=== PATIENT | female | born 1995 | race Hispanic/Latino ===

== ENCOUNTER 2021-04-21 21:01 | Emergency (ER) | payer BC | END 2021-04-21 23:45 | disposition home or self-care (01) | LOC: EDH 21:01 | DX: S09.90XA Unspecified injury of head, initial encounter (principal); F41.9 Anxiety disorder, unspecified; W22.8XXA Striking against or struck by other objects, initial encounter; Y93.89 Activity, other specified; Y92.89 Other specified places as the place of occurrence of the external cause; Y99.8 Other external cause status | CPT/HCPCS: 70450 ==

== ENCOUNTER → 2021-07-12 | Outpatient (CLI) | payer BC ==
[~2021-07-12] MED LIST: FLUD0.1T2 PO; IOHEXOL-350 50ML VIAL IV ONE; PROP20TA7 PO
== END | disposition home or self-care (01) ==
LOC: RAH 08:18
PROVIDERS: ATTEND Internal Medicine Cardiovascular Disease
DX: R94.39 Abnormal result of other cardiovascular function study (principal); R55 Syncope and collapse
CPT/HCPCS: 75574; Q9967

== ENCOUNTER 2021-07-15 06:00 | Day surgery (SDC) | payer BC ==
[2021-07-14 12:59] LABS: BASOPHILS % (AUTO) 0.5 % (0.0-5.0); EOSINOPHILS % (AUTO) 0.8 % (0.0-8.0); HEMATOCRIT 41.4 % (36-48); LYMPHOCYTES % (AUTO) 34.8 % (21.0-51.0); MEAN CORPUSCULAR HEMOGLOBIN 25.6 pg (27.0-33.0); MEAN CORPUSCULAR HGB CONC 32.4 g/dL (32.0-36.0); MONOCYTES % (AUTO) 9.3 % (3.0-13.0); NEUTROPHILS % (AUTO) 54.3 % (40.0-77.0); PLATELET COUNT (AUTO) 284 K/uL (130-400); RED BLOOD CELL COUNT(AUTO) 5.24 MIL/uL (4.00-5.50); RED CELL DISTRIBUTION WIDTH 13.8 % (11.0-15.5); WHITE BLOOD COUNT (AUTO) 6.2 K/uL (4.8-10.8)
[2021-07-14 13:11] LABS: CREATININE 0.7 mg/dL (0.5-1.5); POTASSIUM 3.1 mmol/L (3.5-5.1)
[2021-07-14 13:12] LABS: INR 0.96 (0.85-1.15); PROTHROMBIN TIME 10.5 SEC (9.6-11.6)
[2021-07-14 13:14] VITALS: BP 121/71
[2021-07-14 13:14] LABS: PARTIAL THROMBOPLASTIN TIME 25.9 SEC (26.3-35.5)
[2021-07-15] VITALS (9 sets, daily range): BP systolic 100–135; BP diastolic 55–72
[~2021-07-15] VITALS: Ht 152.4 cm; Wt 78.4 kg
[~2021-07-15 06:00] MED LIST changes: +0.9% NACL 500ML IV.SOLN 500 ML IV SCH; -IOHEXOL-350 50ML VIAL IV ONE
[2021-07-15] MEDS ORDERED: 0.9%NACL 1000ML 1,000 ML IV ONE (06:15)
[2021-07-15 06:23] LABS: CREATININE 0.7 mg/dL (0.5-1.5); POTASSIUM 3.5 mmol/L (3.5-5.1)
[2021-07-15] MEDS ORDERED: MIDAZOLAM HCL 1 MG/ML 2ML VIAL ONE (07:22)
[2021-07-15] MEDS ORDERED: MEPERIDINE-PF 25 MG/ML SYG ONE (07:22)
[2021-07-15] MEDS ORDERED: HEPARIN 10,000 UNIT/10ML (1,000 UNIT/ML) VIAL ONE (07:22)
[2021-07-15] MEDS ORDERED: LIDOCAINE HCL 400MG/20ML VIAL ONE (07:23)
[2021-07-15] MEDS ORDERED: ISOPROTERENOL HCL 0.2 MG/ML AMP/VIAL/BAG ONE (09:18)
[2021-07-15] MEDS ORDERED: PROP80CA59 PO (10:53)
== END 2021-07-15 13:40 | disposition home or self-care (01) ==
LOC: DAH 06:00
PROVIDERS: ATTEND Internal Medicine Cardiovascular Disease
DX: I47.1 Supraventricular tachycardia (principal); I49.8 Other specified cardiac arrhythmias; Z79.01 Long term (current) use of anticoagulants; Z79.899 Other long term (current) drug therapy
CPT/HCPCS: 36415 ×2; 80048 ×2; 84703; 85025; 85610; 85730; 93620; 93621; 93623; A4215; A4216; A4221; A4222; A4223 ×3; A4606; A4649 ×2; A4663; C1730 ×4; C1894 ×5; J1644 ×2; J2175; J2250; J3490 ×2; J7030; 99156; 99157

== ENCOUNTER 2021-11-01 17:49 | Observation (INO) | payer BC ==
[~2021-11-01] VITALS: Ht 152.4 cm; Wt 78.0 kg
[~2021-11-01 17:49] MED LIST changes: -0.9%NACL 1000ML 1,000 ML IV SCH; -POTA-79 PO
[2021-11-01 18:22] LABS: BASOPHILS % (AUTO) 0.5 % (0.0-5.0); EOSINOPHILS % (AUTO) 0.4 % (0.0-8.0); HEMATOCRIT 37.5 % (36-48); LYMPHOCYTES % (AUTO) 18.2 % (21.0-51.0); MEAN CORPUSCULAR HEMOGLOBIN 25.1 pg (27.0-33.0); MEAN CORPUSCULAR HGB CONC 32.3 g/dL (32.0-36.0); MEAN CORPUSCULAR VOLUME 77.8 fL (79-99); MONOCYTES % (AUTO) 9.8 % (3.0-13.0); NEUTROPHILS % (AUTO) 70.9 % (40.0-77.0); PLATELET COUNT (AUTO) 260 K/uL (130-400); RED BLOOD CELL COUNT(AUTO) 4.82 MIL/uL (4.00-5.50); WHITE BLOOD COUNT (AUTO) 8.4 K/uL (4.8-10.8)
[2021-11-01 18:41] LABS: ALBUMIN 3.9 g/dL (3.5-5.0); BILIRUBIN,TOTAL 0.5 mg/dL (0.2-1.0); CREATININE 0.8 mg/dL (0.5-1.5); CRP QUANTITATIVE 13.5 mg/L (0.00-9.0); TOTAL PROTEIN, SERUM 7.6 g/dL (6.0-8.3)
[2021-11-01 18:44] LABS: POTASSIUM 2.8 mmol/L (3.5-5.1)
[2021-11-01] MEDS ORDERED: LIDOCAINE HCL-MPF 1% 2ML VIAL IJ PRN (19:30)
[2021-11-01] MEDS ORDERED: NITROGLYCERIN 0.4 MG SL TAB SL PRN (19:30)
[2021-11-01] MEDS ORDERED: ACETAMINOPHEN 325 MG TAB PO PRN ×2 (19:30)
[2021-11-01] MEDS ORDERED: ONDANSETRON 4MG INJ IV PRN (19:30)
[2021-11-01] MEDS ORDERED: MAGNESIUM 2GM PREMIX 50ML 50 ML IV PRN (19:30)
[2021-11-01] MEDS ORDERED: POTASSIUM CHLORIDE 20MEQ/100ML 100 ML IV PRN (19:30)
[2021-11-01 19:40] LABS: PROTHROMBIN TIME 10.9 SEC (9.6-11.6)
[2021-11-01 19:41] LABS: PARTIAL THROMBOPLASTIN TIME 27.3 SEC (26.3-35.5)
[2021-11-01] MEDS ORDERED: POTASSIUM BICARB/CIT AC 25 MEQ TABLET.EFF PO ONE (20:00)
[2021-11-01] MEDS: FAMOTIDINE 20MG VIAL IV SCH (20:47)
[2021-11-01] MEDS: 0.9%NACL 1000ML 1,000 ML IV SCH (20:47)
[2021-11-02] VITALS (7 sets, daily range): BP systolic 107–134; BP diastolic 63–86
[2021-11-02] MEDS ORDERED: MIDAZOLAM HCL 1 MG/ML 2ML VIAL ONE ×3 (07:34→09:51)
[2021-11-02] MEDS ORDERED: LIDOCAINE HCL 400MG/20ML VIAL ONE ×2 (07:34→08:39)
[2021-11-02] MEDS ORDERED: MEPERIDINE-PF 25 MG/ML SYG ONE ×3 (07:34→09:51)
[2021-11-02 07:44] LABS: ALBUMIN 3.6 g/dL (3.5-5.0); BILIRUBIN,TOTAL 0.5 mg/dL (0.2-1.0); CREATININE 0.6 mg/dL (0.5-1.5); MAGNESIUM 2.1 mg/dL (1.80-2.40); POTASSIUM 3.2 mmol/L (3.5-5.1); TOTAL PROTEIN, SERUM 7.2 g/dL (6.0-8.3)
[2021-11-02 07:56] LABS: BASOPHILS % (AUTO) 0.3 % (0.0-5.0); EOSINOPHILS % (AUTO) 0.5 % (0.0-8.0); HEMATOCRIT 35.5 % (36-48); LYMPHOCYTES % (AUTO) 22.5 % (21.0-51.0); MEAN CORPUSCULAR HEMOGLOBIN 25.3 pg (27.0-33.0); MEAN CORPUSCULAR HGB CONC 32.1 g/dL (32.0-36.0); MEAN CORPUSCULAR VOLUME 78.9 fL (79-99); MONOCYTES % (AUTO) 12.4 % (3.0-13.0); PLATELET COUNT (AUTO) 254 K/uL (130-400); RED CELL DISTRIBUTION WIDTH 14.5 % (11.0-15.5); WHITE BLOOD COUNT (AUTO) 6.5 K/uL (4.8-10.8)
[2021-11-02] MEDS ORDERED: HEPARIN 10,000 UNIT/10ML (1,000 UNIT/ML) VIAL ONE (08:09)
[2021-11-02] MEDS ORDERED: ISOPROTERENOL HCL 0.2 MG/ML AMP/VIAL/BAG ONE (09:09)
[2021-11-02] MEDS ORDERED: PHARMACY COMMUNICATION MISC SCH (10:00)
[2021-11-02] MEDS ORDERED: EPINEPHRINE PF 1MG AMP 10 MG in 0.9% NACL 250ML 250 ML IV SCH (10:00)
[2021-11-02] MEDS ORDERED: IOHEXOL-350 50ML VIAL IV ONE (10:06)
[2021-11-02] MEDS ORDERED: KCL 20 MEQ ERTAB PO SCH (11:00)
[2021-11-02] MEDS: 0.9%NACL 1000ML 1,000 ML IV SCH (11:39)
[2021-11-02] MEDS: FAMOTIDINE 20MG VIAL IV SCH (11:45)
[2021-11-02] MEDS ORDERED: POTASSIUM CHLORIDE 10% ELIXIR 20 MEQ/15 ML UDCUP PO SCH (12:00)
[2021-11-02] MEDS ORDERED: POTA-79 PO (16:15)
== END 2021-11-02 17:55 | disposition home or self-care (01) ==
LOC: EDH 17:49 → EDHIP 19:28 → INTOOBSV 19:28 → OBSVTOIN 19:28 → 4DH 11-02 11:40
PROVIDERS: ADMIT Internal Medicine; ATTEND Internal Medicine
DX: R55 Syncope and collapse (principal); Z20.822 Contact with and (suspected) exposure to COVID-19; I47.1 Supraventricular tachycardia; I49.8 Other specified cardiac arrhythmias; I48.91 Unspecified atrial fibrillation; E87.6 Hypokalemia; I10 Essential (primary) hypertension; E66.9 Obesity, unspecified; F41.9 Anxiety disorder, unspecified; Z68.33 Body mass index [BMI] 33.0-33.9, adult; Z79.899 Other long term (current) drug therapy
CPT/HCPCS: 36415 ×3; 71045; 80048; 80053 ×2; 83735 ×2; 84132 ×2; 84484; 84703 ×2; 85025 ×3; 85610 ×2; 85730 ×2; 86140; 87635; 93005 ×3; 93613; 93621; 93623; 93653; 96374; 96376; 99283; A4649 ×2; C1730 ×3; C1731; C1894 ×5; G0378 ×19; J0171; J1644 ×3; J2175 ×2; J2250 ×2; J3490 ×5; J7030; J7050; Q9967; 99156; 99157

== ENCOUNTER → 2021-11-01 | Outpatient (CLI) | payer BC ==
[~2021-11-01] VITALS: Ht 152.4 cm; Wt 78.2 kg
[~2021-11-01] MED LIST changes: -0.9% NACL 500ML IV.SOLN 500 ML IV SCH; +0.9%NACL 1000ML 1,000 ML IV SCH; +CITA10TA89 PO; +MIDO5TAB4 PO; +POTA-79 PO; +POTASSIUM PO; -PROP20TA7 PO; +PROP80CA59 PO; +VERA120T92 PO
[2021-11-01 14:12] LABS: BASOPHILS % (AUTO) 0.2 % (0.0-5.0); EOSINOPHILS % (AUTO) 0.5 % (0.0-8.0); HEMATOCRIT 40.1 % (36-48); LYMPHOCYTES % (AUTO) 17.2 % (21.0-51.0); MEAN CORPUSCULAR HGB CONC 32.2 g/dL (32.0-36.0); MEAN CORPUSCULAR VOLUME 77.9 fL (79-99); MONOCYTES % (AUTO) 6.8 % (3.0-13.0); NEUTROPHILS % (AUTO) 75.1 % (40.0-77.0); PLATELET COUNT (AUTO) 273 K/uL (130-400); RED BLOOD CELL COUNT(AUTO) 5.15 MIL/uL (4.00-5.50); RED CELL DISTRIBUTION WIDTH 14.1 % (11.0-15.5); WHITE BLOOD COUNT (AUTO) 8.3 K/uL (4.8-10.8)
[2021-11-01 14:26] LABS: INR 0.98 (0.85-1.15); PROTHROMBIN TIME 10.7 SEC (9.6-11.6)
[2021-11-01 14:28] VITALS: BP 139/62
[2021-11-01 14:28] LABS: PARTIAL THROMBOPLASTIN TIME 27.5 SEC (26.3-35.5)
[2021-11-01 14:29] LABS: CREATININE 0.6 mg/dL (0.5-1.5)
[2021-11-01 14:38] LABS: POTASSIUM 2.7 mmol/L (3.5-5.1)
== END | disposition home or self-care (01) ==
LOC: DAH 10:00 → EDSTATUS 12:00
PROVIDERS: ATTEND Internal Medicine Cardiovascular Disease
DX: Z01.810 Encounter for preprocedural cardiovascular examination (principal); R55 Syncope and collapse; I49.8 Other specified cardiac arrhythmias; Z79.01 Long term (current) use of anticoagulants
CPT/HCPCS: 36415; 80048; 84703; 85025; 85610; 85730; 93005

== ENCOUNTER 2022-03-03 23:52 | Emergency (ER) | payer BC, OTHER ==
[~2022-03-03] VITALS: Ht 152.4 cm; Wt 80.7 kg
[~2022-03-03 23:52] MED LIST changes: +POTA-79 PO; -POTASSIUM PO; -PROP80CA59 PO
[2022-03-04 01:11] LABS: BASOPHILS % (AUTO) 0.2 % (0.0-5.0); EOSINOPHILS % (AUTO) 0.7 % (0.0-8.0); HEMATOCRIT 43.6 % (36-48); LYMPHOCYTES % (AUTO) 24.7 % (21.0-51.0); MEAN CORPUSCULAR HGB CONC 32.3 g/dL (32.0-36.0); MEAN CORPUSCULAR VOLUME 77.2 fL (79-99); MONOCYTES % (AUTO) 4.6 % (3.0-13.0); NEUTROPHILS % (AUTO) 69.4 % (40.0-77.0); PLATELET COUNT (AUTO) 350 K/uL (130-400); RED BLOOD CELL COUNT(AUTO) 5.65 MIL/uL (4.00-5.50); WHITE BLOOD COUNT (AUTO) 8.5 K/uL (4.8-10.8)
[2022-03-04 01:13] LABS: BILIRUBIN,URINE Negative (NEGATIVE); COLOR,URINE Yellow (YELLOW); GLUCOSE, URINE (UA) Negative (NEGATIVE); KETONES,URINE Negative (NEGATIVE); LEUKOCYTE ESTERASE ,URINE Moderate (NEGATIVE); NITRATE,URINE Negative (NEGATIVE); OCCULT BLOOD,URINE Moderate (NEGATIVE); PROTEIN,URINE Negative (NEGATIVE); UROBILINOGEN,URINE 0.2 mg/dL (0.2-1.0)
[2022-03-04 01:15] LABS: HCG,QUAL RESULT NEGATIVE (NEGATIVE)
[2022-03-04 01:16] LABS: APPEARANCE,URINE CLEAR (CLEAR)
[2022-03-04 01:23] LABS: BACTERIA,URINE Few /HPF (None Seen)
[2022-03-04 01:30] LABS: CARBON DIOXIDE 27 mmol/L (21-32); CHLORIDE 103 mmol/L (101-111); CREATININE 0.6 mg/dL (0.5-1.5); GLOMERULAR FILTR. RATE CALC 131 mL/min (>60); GLUCOSE,RANDOM 96 mg/dL (70-105); POTASSIUM 3.6 mmol/L (3.5-5.1); SODIUM SERUM 137 mmol/L (136-145); UREA NITROGEN, BLOOD 9 mg/dL (7-18)
[2022-03-04 01:34] LABS: ALANINE AMINOTRANSFERASE 19 U/L (12-78); ALBUMIN 4.1 g/dL (3.5-5.0); ALCOHOL, BLOOD < 3 mg/dL (0-10); ASPARTATE AMINOTRANSFERASE 15 U/L (10-37); BILIRUBIN,TOTAL 0.6 mg/dL (0.2-1.0); TOTAL PROTEIN, SERUM 8.2 g/dL (6.0-8.3)
[2022-03-04 01:40] LABS: ACETAMINOPHEN < 1 mcg/mL (10-30); SALICYLATE < 2.8 mg/dL (2.8-20.0)
[2022-03-04 01:48] LABS: AMPHET/METH SCREEN,URINE NEGATIVE (NEGATIVE); BARBITURATE SCREEN, URINE NEGATIVE (NEGATIVE); BENZODIAZEPINES SCREEN,URINE NEGATIVE (NEGATIVE); CANNABINOID SCREEN,URINE NEGATIVE (NEGATIVE); COCAINE SCREEN,URINE NEGATIVE (NEGATIVE); OPIATE SCREEN,URINE NEGATIVE (NEGATIVE); PHENCYCLIDINE SCREEN,URINE NEGATIVE (NEGATIVE)
[2022-03-04 08:00] VITALS: BP 131/98
== END 2022-03-04 12:11 ==
LOC: EDH 23:52
DX: T42.6X2A Poisoning by other antiepileptic and sedative-hypnotic drugs, intentional self-harm, initial encounter (principal); S50.812A Abrasion of left forearm, initial encounter; R45.851 Suicidal ideations; F31.9 Bipolar disorder, unspecified; Z20.822 Contact with and (suspected) exposure to COVID-19; Z79.899 Other long term (current) drug therapy; X78.8XXA Intentional self-harm by other sharp object, initial encounter; Y93.89 Activity, other specified; Y92.89 Other specified places as the place of occurrence of the external cause; Y99.8 Other external cause status
CPT/HCPCS: 36415; 80053; 80305; 81001; 81025; 85025; 87088; 87635; 99285; C9803; G0481

== ENCOUNTER → 2022-12-16 | Outpatient (CLI) | payer BC ==
[2022-12-16 12:33] LABS: CREATININE 0.8 mg/dL (0.5-1.5); MAGNESIUM 1.8 mg/dL (1.80-2.40); POTASSIUM 3.9 mmol/L (3.5-5.1)
== END | disposition home or self-care (01) ==
LOC: LAB 10:29
PROVIDERS: ATTEND Internal Medicine Cardiovascular Disease
DX: G90.9 Disorder of the autonomic nervous system, unspecified (principal)
CPT/HCPCS: 36415; 80048; 83735

== ENCOUNTER → 2023-01-18 | Outpatient (CLI) | payer BC ==
[2023-01-18 13:02] LABS: CREATININE 0.7 mg/dL (0.5-1.5); POTASSIUM 3.8 mmol/L (3.5-5.1)
== END | disposition home or self-care (01) ==
LOC: LAB 08:41
PROVIDERS: ATTEND Internal Medicine Cardiovascular Disease
DX: G90.9 Disorder of the autonomic nervous system, unspecified (principal)
CPT/HCPCS: 36415; 80048; 83735

== ENCOUNTER → 2023-12-20 | Outpatient (CLI) | payer SELFPAY ==
[~2023-12-20] MED LIST changes: +POTA-364 PO; -POTA-79 PO
[2023-12-20 16:18] LABS: CREATININE 0.6 mg/dL (0.5-1.5); MAGNESIUM 2.1 mg/dL (1.80-2.40); POTASSIUM 3.9 mmol/L (3.5-5.1)
== END | disposition home or self-care (01) ==
LOC: LAB 14:47
PROVIDERS: ATTEND Internal Medicine Cardiovascular Disease
DX: G90.9 Disorder of the autonomic nervous system, unspecified (principal)
CPT/HCPCS: 36415; 80048; 83735

== ENCOUNTER → 2024-08-28 | Outpatient (CLI) | payer SELFPAY ==
[2024-08-28 16:32] LABS: BASOPHILS # (AUTO) 0.03 K/uL (0.00-0.20); BASOPHILS % (AUTO) 0.4 % (0.0-5.0); EOSINOPHILS # (AUTO) 0.09 K/uL (0.00-0.70); EOSINOPHILS % (AUTO) 1.2 % (0.0-8.0); HEMATOCRIT 41.6 % (36-48); IMMATURE GRANULOCYTE ABSOLUTE 0.03 K/uL (0-1); LYMPHOCYTES # (AUTO) 2.4 K/uL (1.0-4.8); LYMPHOCYTES % (AUTO) 30.6 % (21.0-51.0); MEAN CORPUSCULAR HEMOGLOBIN 25.3 pg (27.0-33.0); MEAN CORPUSCULAR HGB CONC 30.5 g/dL (32.0-36.0); MEAN CORPUSCULAR VOLUME 82.9 fL (79-99); MONOCYTES # (AUTO) 0.5 K/uL (0.1-1.0); NEUTROPHILS # (AUTO) 4.6 K/uL (1.8-7.7); NEUTROPHILS % (AUTO) 60.4 % (40.0-77.0); PLATELET COUNT (AUTO) 291 K/uL (130-400); RED BLOOD CELL COUNT(AUTO) 5.02 MIL/uL (4.00-5.50); RED CELL DISTRIBUTION WIDTH 14.5 % (11.0-15.5); WHITE BLOOD COUNT (AUTO) 7.7 K/uL (4.8-10.8)
[2024-08-28 17:01] LABS: ALBUMIN 3.9 g/dL (3.5-5.0); BILIRUBIN,TOTAL 0.2 mg/dL (0.2-1.0); CREATININE 0.7 mg/dL (0.5-1.0); MAGNESIUM 2.2 mg/dL (1.80-2.40); POTASSIUM 4.3 mmol/L (3.5-5.1); THYROID STIMULATING HORMONE 1.68 uIU/mL (0.36-3.74); TOTAL PROTEIN, SERUM 7.6 g/dL (6.0-8.3)
== END | disposition home or self-care (01) ==
LOC: LAB 11:35
PROVIDERS: ATTEND Internal Medicine Cardiovascular Disease
DX: G90.9 Disorder of the autonomic nervous system, unspecified (principal)
CPT/HCPCS: 36415; 80053; 83735; 84443; 85025

== ENCOUNTER 2025-11-02 22:45 | Inpatient (IN) | payer SELFPAY ==
[~2025-11-02] VITALS: Ht 152.4 cm; Wt 84.9 kg
--- NOTE | 2025-11-02 23:13 | ERN ---
General Chief Complaint: Abdominal Pain Stated Complaint: RUQ ABDOMINAL PAIN Time Seen by MD: 22:47 History of Present Illness Initial Comments 30-year-old female history of cholelithiasis, pots syndrome here for evaluation of right upper quadrant pain. States that she was diagnosed with cholelithiasis a few months ago and was discharged home with [place]. She comes in today as she was having worsening right upper quadrant pain that radiated through her back. She took three [place] earlier today with a minimal relief of symptoms but she decided to come to the emergency room for evaluation. No fever no cough no abdominal trauma or diarrhea. Positive for vomiting. Positive for nausea. Allergies: Coded Allergies: No Known Allergies (Unverified Allergy, Unknown, 04/22/21) Home Meds Active Scripts Ketorolac Tromethamine (Ketorolac Tromethamine) 10 Mg Tablet, 1 TAB PO TID for pain for 5 Days, #15 TAB 0 Refills Prov:LINDSAY LOWERY DO 05/13/25 Hydrocodone/Acetaminophen (Hydrocodon-Acetaminophen 5-325) 5 Mg-325 Mg Tablet, 1 TAB PO TIDP PRN for pain for 5 Days, #15 TAB 0 Refills Prov:LINDSAY LOWERY DO 05/13/25 Potassium Chloride (Potassium Chloride) 20 Meq Tablet.er, 20 MEQ PO DAILY for 30 Days, #30 TAB Prov:CALVIN TREVINO Jr., MD 11/02/21 Reported Medications Midodrine HCl (Midodrine HCl) 5 Mg Tablet, 5 MG PO TID, TAB 11/01/21 Citalopram Hydrobromide (Citalopram HBr) 10 Mg Tablet, 5 MG PO HS, TAB 11/01/21 Verapamil HCl (Verapamil ER) 120 Mg Tablet.er, 120 MG PO DAILY, TAB 11/01/21 Fludrocortisone Acetate (Fludrocortisone Acetate) 0.1 Mg Tablet, 0.2 MG PO BID, TAB 07/14/21 Past Medical History Past Medical History: Gallstones, Other Medical History Other: FARMER, TACHYCARDIA Past Surgical History: Other Surgical History Other: CARDIAC ABLATION Social History Social History: Negative, Lives with family Female( History) LMP: Oct 23, 2025 Gastrointestinal/Abdominal: (+) nausea, (+) vomiting, (+) abdominal pain Review of Systems: was completed, & the rest were negative. Physical Exam Physical Exam Dictation GENERAL APPEARANCE NAD, activity normal for age, well developed/ well nourished, no cyanosis, pallor, or diaphoresis. EYES lids/conjunctiva normal. EARS/NOSE/THROAT Mucous membranes moist, nares normal, lips/teeth normal uvula midline without oral pharyngeal erythema, exudate or swelling TMs normal bilaterally. No lymphangitis/lymphedema. HEAD/NECK normocephalic atraumatic, no facial trauma, neck is supple. RESPIRATORY respiratory effort normal, speaks in full sentences, no tripod position, no accessory muscle use. Lungs clear to auscultation without rhonchi, wheezes, rales CARDIAC Regular rate and rhythm, no edema. ABDOMINAL Soft, right upper quadrant tenderness to deep palpation. Positive Almaraz sign. MUSCLES/EXTREMITIES No abnormal range of motion, no swelling. SKIN Warm, pink and dry. No rashes, dermatoses, petechiae or lesions. NEUROLOGICAL Speech is clear and appropriate. Normal level of consciousness. Gait and coordination are normal. 5/5 strength in all extremities. PSYCH Normal mood and affect. Judgement/competence is appropriate Results Laboratory and Microbiology Lab and Micro Result Laboratory Tests Test 11/02/25 23:18 White Blood Count 12.4 K/uL (4.8-10.8) H Red Blood Count 4.83 MIL/uL (4.00-5.50) Hemoglobin 12.8 g/dL (12.0-16.0) Hematocrit 38.5 % (36-48) Mean Corpuscular Volume 79.7 fL (79-99) Mean Corpuscular Hemoglobin 26.5 pg (27.0-33.0) L Mean Corpuscular Hemoglobin Concent 33.2 g/dL (32.0-36.0) Red Cell Distribution Width 13.8 % (11.0-15.5) Platelet Count 286 K/uL (130-400) Mean Platelet Volume 11.6 fL (7.5-10.5) H Immature Granulocyte % (Auto) 0.5 % (0-1) Neutrophils (%) (Auto) 79.3 % (40.0-77.0) H Lymphocytes (%) (Auto) 12.6 % (21.0-51.0) L Monocytes (%) (Auto) 7.2 % (3.0-13.0) Eosinophils (%) (Auto) 0.2 % (0.0-8.0) Basophils (%) (Auto) 0.2 % (0.0-5.0) Neutrophils # (Auto) 9.9 K/uL (1.8-7.7) H Lymphocytes # (Auto) 1.6 K/uL (1.0-4.8) Monocytes # (Auto) 0.9 K/uL (0.1-1.0) Eosinophils # (Auto) 0.03 K/uL (0.00-0.70) Basophils # (Auto) 0.02 K/uL (0.00-0.20) Absolute Immature Granulocyte (auto 0.06 K/uL (0-1) Nucleated Red Blood Cells 0.0 % (0.0-0.19) Urine Color LIGHT-YELLOW (YELLOW) Urine Appearance CLEAR (CLEAR) Urine pH 6.0 (5.0-8.0) Urine Specific [place] 1.017 (1.001-1.031) Urine Protein NEGATIVE mg/dL (NEGATIVE) Urine Glucose (UA) NEGATIVE mg/dL (NEGATIVE) Urine Ketones NEGATIVE mg/dL (NEGATIVE) Urine Occult Blood +- (TRACE) (NEGATIVE) H Urine Nitrate NEGATIVE (NEGATIVE) Urine Bilirubin NEGATIVE mg/dL (NEGATIVE) Urine Urobilinogen 0.2 mg/dL (0.2-1.0) Urine Leukocyte Esterase 75 [place]/uL (NEGATIVE) H Urine RBC 2-5 /HPF (0-1) H Urine WBC 2-5 /HPF (0-1) H Urine Squamous Epithelial Cells Moderate /HPF (0-2) H Urine Bacteria Few /HPF (None Seen) Urine HCG, Qualitative NEGATIVE (NEGATIVE) Sodium Level 132 mmol/L (136-145) L Potassium Level 4.0 mmol/L (3.5-5.1) Chloride Level 96 mmol/L (101-111) L Carbon Dioxide Level 27 mmol/L (21-32) Blood Urea Nitrogen 8 mg/dL (7-18) Creatinine 0.7 mg/dL (0.5-1.0) Glomerular Filtration Rate Calc 121 mL/min (>90) Random Glucose 118 mg/dL (70-105) H Total Calcium 8.7 mg/dL (8.5-10.1) Total Bilirubin 0.4 mg/dL (0.2-1.0) Direct Bilirubin 0.1 mg/dL (0.0-0.3) Aspartate Amino Transf (AST/SGOT) 18 U/L (10-37) Alanine Aminotransferase (ALT/SGPT) 20 U/L (12-78) Alkaline Phosphatase 76 U/L (50-136) Total Protein 7.5 g/dL (6.0-8.3) Albumin 3.8 g/dL (3.5-5.0) Lipase 27 U/L (16-77) MDM 22-year-old male here for evaluation of right upper quadrant pain. We will get a cholelithiasis/cholecystitis workup and reassess. ED Course Orders Procedure Category Date Status Time Urinalysis Profile LAB 11/02/25 Complete 22:48 ,Urine Test LAB 11/02/25 Complete 22:48 Hepatic Function Panel LAB 11/02/25 Complete 22:50 Cbc With Differential LAB 11/02/25 Complete 22:50 Basic Metabolic Panel LAB 11/02/25 Complete 22:50 Lipase LAB 11/02/25 Complete 22:50 Us Abdominal Ruq\Ltd US 11/02/25 Resulted 22:50 Morphine 4mg Syg PHA 11/02/25 Complete (Morphine 4mg Syg) 23:00 Culture Urine SONIA 11/02/25 Logged 23:34 Ketorolac PHA 11/03/25 Complete Tromethamine 15mg/Ml 00:00 Zosyn 3.375gm+Ns 50ml PHA 11/03/25 Logged (Zosyn 3.375gm+Ns 01:30 Current Medications Medications (Trade) Dose Ordered Sig/Talha Route PRN Reason Start Time Stop Time Status Last Admin Dose Admin Ketorolac Tromethamine (toRADol) 15 mg ONCE ONCE IV 11/03/25 00:00 11/03/25 00:07 DC 11/03/25 00:14 Morphine Sulfate (morPHINE 4MG SYG) 4 mg ONCE ONCE IVP 11/02/25 23:00 11/02/25 23:11 DC 11/02/25 23:12 Piperacillin Sod/ Tazobactam Sod (Zosyn 3.375gm+NS 50ml) 3.375 gm ONCE ONCE IV 11/03/25 01:30 11/03/25 01:31 UNV Vital Signs Date Time Temp Pulse Resp B/P (MAP) Pulse Ox O2 Delivery O2 Flow Rate FiO2 11/02/25 22:46 98.8 75 18 146/94 98 Room Air 0 DX & DISP Disposition: Inpatient Departure Impression: Primary Impression: Acute cholecystitis Condition: Stable Referrals: MADISON MCCLURE MD (PCP) ROSALVA GOOD MD Nov 02, 2025 23:13
[2025-11-02 23:27] LABS: IMMATURE GRANULOCYTE ABSOLUTE 0.06 K/uL (0-1); NUCLEATED RED BLOOD CELLS 0.0 % (0.0-0.19); PLATELET COUNT (AUTO) 286 K/uL (130-400); RED BLOOD CELL COUNT(AUTO) 4.83 MIL/uL (4.00-5.50); RED CELL DISTRIBUTION WIDTH 13.8 % (11.0-15.5); WHITE BLOOD COUNT (AUTO) 12.4 K/uL (4.8-10.8)
[2025-11-02 23:30] LABS: APPEARANCE,URINE CLEAR (CLEAR); GLUCOSE, URINE (UA) NEGATIVE (NEGATIVE); LEUKOCYTE ESTERASE ,URINE 75 Leu/uL (NEGATIVE); NITRATE,URINE NEGATIVE (NEGATIVE); OCCULT BLOOD,URINE +- (TRACE) (NEGATIVE)
[2025-11-02 23:31] LABS: HCG,QUALITATIVE URINE NEGATIVE (NEGATIVE)
[2025-11-02 23:33] LABS: ADD UA MICROSCOPIC YES
[2025-11-02 23:38] LABS: CREATININE 0.7 mg/dL (0.5-1.0); GLOMERULAR FILTR. RATE CALC 121.0 mL/min (>90); GLUCOSE,RANDOM 118.0 mg/dL (70-105); SODIUM SERUM 132.0 mmol/L (136-145); UREA NITROGEN, BLOOD 8.0 mg/dL (7-18)
[2025-11-02 23:43] LABS: ASPARTATE AMINOTRANSFERASE 18.0 U/L (10-37); SQUAMOUS EPITHELIAL CELL,UR Moderate /HPF (0-2); TOTAL PROTEIN, SERUM 7.5 g/dL (6.0-8.3)
[2025-11-03] VITALS (8 sets, daily range): BP systolic 106–129; BP diastolic 59–80; PULSE 80–114; RESP 16–19; TEMP 98–102.7; O2SAT 94–99
[2025-11-03] MEDS: ZOSYN 3.375GM +NS 50ML IV ONE (01:37)
[2025-11-03] MEDS ORDERED: ZOSYN 3.375GM +NS 50ML IV SCH (02:00)
[2025-11-03 04:39] LABS: IMMATURE GRANULOCYTE ABSOLUTE 0.03 K/uL (0-1); NUCLEATED RED BLOOD CELLS 0.0 % (0.0-0.19); PLATELET COUNT (AUTO) 217 K/uL (130-400); RED BLOOD CELL COUNT(AUTO) 4.58 MIL/uL (4.00-5.50); RED CELL DISTRIBUTION WIDTH 13.6 % (11.0-15.5); WHITE BLOOD COUNT (AUTO) 9.1 K/uL (4.8-10.8)
[2025-11-03 04:55] LABS: ASPARTATE AMINOTRANSFERASE 275.0 U/L (10-37); CREATININE 0.7 mg/dL (0.5-1.0); GLOMERULAR FILTR. RATE CALC 121.0 mL/min (>90); GLUCOSE,RANDOM 120.0 mg/dL (70-105); SODIUM SERUM 134.0 mmol/L (136-145); TOTAL PROTEIN, SERUM 6.8 g/dL (6.0-8.3); UREA NITROGEN, BLOOD 8.0 mg/dL (7-18)
--- NOTE | 2025-11-03 08:49 | CONS ---
GENERAL SURGERY CONSULTATION NOTE Date/Time Patient Seen: [11/03/2025] Requesting Physician: [Dr. Russ] Reason for Consultation: [Acute cholecystitis] History of Present Illness: [Patient presents to this facility for evaluation of RUQ abdominal pain radiating to her epigastric and LUQ that began yesterday. Patient reports nausea and chills. She denies vomiting, fever, melena, hematochezia, and hematuria. Patient reports that on May 2025 she began to experience the same symptoms, went to the ED where she was diagnosed with cholelithiasis and discharged home with [place]. Patient states the pain has been intermittent since then but controlled with [place]. She notes coming to the ED today as she began to experience abdominal pain yesterday that was progressively worsening. She took [place] with minimal relief of symptoms. Prior to onset of symptoms, patient states tolerating a regular diet and having normal bowel movements. She denies recent trauma. Patient has a past medical hx of POTS and surgical hx of cardiac ablation [place] [address] Gomes.] Past Medical History Past Medical History: FARMER, TACHYCARDIA Past Surgical History: CARDIAC ABLATION Social History Social History: Negative, Lives with family Denies ETOH, smoking, and using illicit drugs. Current Medications Medications (Trade) Dose Ordered Sig/Talha Route Start Time Stop Time Status Last Admin Dose Admin Pantoprazole Sodium (PROTonix 40MG INJ) 40 mg DAILY IVP 11/03/25 09:00 12/03/25 08:59 Piperacillin Sod/ Tazobactam Sod (Zosyn 3.375gm+NS 50ml) 3.375 gm Q8H IV 11/03/25 02:00 11/03/25 01:49 DC Piperacillin Sod/ Tazobactam Sod (Zosyn 3.375gm+NS 50ml) 3.375 gm Q8H IV 11/03/25 09:30 11/05/25 09:29 Review of Systems: 14 review of systems negative except as mentioned in history of present illness Physical Examination: GENERAL: [No acute distress.] HEAD: [Normal with no signs of head trauma.] EYES: [PERRLA, EOMI, conjunctiva and sclera normal.] ENT: [Hearing grossly intact, normal oropharynx.] NECK: [Supple. No thyromegaly. ] LUNGS: [Unlabored breathing.] HEART: [Regular rate and rhythm.] VASC: [Peripheral pulses are normal and equal in all extremities.] ABD: [Soft, tender to RUQ, no rebound, +Almaraz's sign.] LYMPH: [No lymphadenopathy noted.] EXT: [No clubbing, cyanosis or edema.] SKIN: [No rashes or lesions noted.] NEURO: [Awake, alert, and oriented x3.] Vital Signs (last 8hr) Date Time Temp Pulse Resp B/P (MAP) Pulse Ox O2 Delivery O2 Flow Rate FiO2 11/03/25 07:43 98.2 97 18 129/80 98 Room Air 11/03/25 03:34 98.2 80 17 114/78 94 Room Air 11/03/25 02:15 94 Room Air* 0 21 11/03/25 02:01 98.6 84 17 103/55 97 Room Air* 0 21 Laboratory: [ ] Hematology Labs: Test 11/03/25 04:28 Range/Units White Blood Count 9.1 # 4.8-10.8 K/uL Red Blood Count 4.58 4.00-5.50 MIL/uL Hemoglobin 11.9 L 12.0-16.0 g/dL Hematocrit 37.9 36-48 % Mean Corpuscular Volume 82.8 79-99 fL Mean Corpuscular Hemoglobin 26.0 L 27.0-33.0 pg Mean Corpuscular Hemoglobin Concent 31.4 L 32.0-36.0 g/dL Red Cell Distribution Width 13.6 11.0-15.5 % Platelet Count 217 130-400 K/uL Mean Platelet Volume 11.2 H 7.5-10.5 fL Immature Granulocyte % (Auto) 0.3 0-1 % Neutrophils (%) (Auto) 74.2 40.0-77.0 % Lymphocytes (%) (Auto) 15.5 L 21.0-51.0 % Monocytes (%) (Auto) 9.6 3.0-13.0 % Eosinophils (%) (Auto) 0.3 0.0-8.0 % Basophils (%) (Auto) 0.1 0.0-5.0 % Neutrophils # (Auto) 6.7 1.8-7.7 K/uL Lymphocytes # (Auto) 1.4 1.0-4.8 K/uL Monocytes # (Auto) 0.9 0.1-1.0 K/uL Eosinophils # (Auto) 0.03 0.00-0.70 K/uL Basophils # (Auto) 0.01 0.00-0.20 K/uL Absolute Immature Granulocyte (auto 0.03 0-1 K/uL Nucleated Red Blood Cells 0.0 0.0-0.19 % Chemistry Labs: Test 11/03/25 04:28 11/02/25 23:18 Range/Units Sodium Level 134 L 136-145 mmol/L Potassium Level 3.9 3.5-5.1 mmol/L Chloride Level 97 L 101-111 mmol/L Carbon Dioxide Level 29 21-32 mmol/L Blood Urea Nitrogen 8 7-18 mg/dL Creatinine 0.7 0.5-1.0 mg/dL Glomerular Filtration Rate Calc 121 >90 mL/min Random Glucose 120 H 70-105 mg/dL Total Calcium 8.5 8.5-10.1 mg/dL Magnesium Level 1.80 1.80-2.40 mg/dL Total Bilirubin 0.9 # 0.2-1.0 mg/dL Aspartate Amino Transf (AST/SGOT) 275 H 10-37 U/L Alanine Aminotransferase (ALT/SGPT) 167 #H 12-78 U/L Alkaline Phosphatase 78 50-136 U/L Total Protein 6.8 6.0-8.3 g/dL Albumin 3.4 L 3.5-5.0 g/dL Direct Bilirubin 0.1 0.0-0.3 mg/dL Lipase 27 16-77 U/L Diagnostics / Radiology: [CEXAM: US Abdomen, Right Upper Quadrant CLINICAL HISTORY: History of gallstones; rule out cholecystitis TECHNIQUE: Right upper quadrant sonography performed with grayscale and Doppler imaging. COMPARISON: Prior ultrasound 05/13/25 (details not provided). FINDINGS LIVER: Liver size: 16 cm Echogenicity: Increased echogenicity (suggestive of hepatic steatosis) No focal liver mass identified. GALLBLADDER: Gallbladder wall thickness: 2 mm (normal) Gallbladder distended to: 11.1 cm Nonmobile gallstone at the gallbladder neck measuring 17 mm No pericholecystic fluid noted. COMMON BILE DUCT: CBD diameter: 4 mm (normal) MAIN PORTAL VEIN: Flow: Hepatopetal Velocity: 24.3 cm/s PANCREAS: Within normal limits, where visualized. RIGHT KIDNEY: Size: 9.5 4.6 4.0 cm No hydronephrosis. No renal stones or mass. IMPRESSION Acute calculous cholecystitis. Mild fatty liver. /[place]] Assessment: [Acute calculous cholecystitis ] Plan: [Plan is for laparoscopic cholecystectomy with intraoperative cholangiogram in the OR tomorrow. Risks associated with the procedure including but not limited to infection, bleeding, and injury to surrounding structures were discussed with the patient. Patient verbalized understanding and agrees with the plan. ] Patient has acute onset of abdominal pain starting yesterday. Pain is dull relief of pain but. The patient is admitted to the hospital twice to get a visit. We will have the patient was found to extend the gallbladder with gallstones. Patient's history symptoms are consistent with gallbladder disease. Patient denies any melena, hematochezia, hematuria. Patient indicates the pain is in the epigastrium to the quadrant. We will plan a laparoscopic cholecystectomy with intraoperative cholangiogram once cardiac clearance has been obtained. Risks associated with the procedure not limited to infection, bleeding, injury to surrounding structures has been explained to patient and she indicates she understands. I personally discussed the case with my PA and agree with my PA note above. JENNIFER REHMAN Nov 03, 2025 08:49 PEDRO BEST MD Nov 03, 2025 15:34
[2025-11-03] MEDS: ZOSYN 3.375GM +NS 50ML IV SCH (09:20)
--- NOTE | 2025-11-03 11:40 | NUR ---
DCP:HOME Pt currently lives at home with her mom. Pt denies any DME, home health, or provider services. Pt states that she is able to complete ADLs independently. PCP is Dr. Russ and uses [facility] for any RX needs. At DC pt will want to go home and family can assist with transportation.
--- NOTE | 2025-11-03 14:03 | HP ---
HISTORY AND PHYSICAL NOTE DATE OF CONSULTATION: 11/03/25 REASON FOR CONSULTATION: ruq pain HISTORY OF PRESENT ILLNESS: 30-year-old female history of cholelithiasis, pots syndrome here for evaluation of right upper quadrant pain. States that she was diagnosed with cholelithiasis a few months ago and was discharged home with [place]. She comes in today as she was having worsening right upper quadrant pain that radiated through her back. She took three [place] earlier today with a minimal relief of symptoms but she decided to come to the emergency room for evaluation. No fever no cough no abdominal trauma or diarrhea. Positive for vomiting. Positive for nausea. Allergies: Coded Allergies: No Known Allergies (Unverified Allergy, Unknown, 04/22/21) Home Meds Active Scripts Ketorolac Tromethamine (Ketorolac Tromethamine) 10 Mg Tablet, 1 TAB PO TID for pain for 5 Days, #15 TAB 0 Refills Prov:LINDSAY LOWERY DO 05/13/25 Hydrocodone/Acetaminophen (Hydrocodon-Acetaminophen 5-325) 5 Mg-325 Mg Tablet, 1 TAB PO TIDP PRN for pain for 5 Days, #15 TAB 0 Refills Prov:LINDSAY LOWERY DO 05/13/25 Potassium Chloride (Potassium Chloride) 20 Meq Tablet.er, 20 MEQ PO DAILY for 30 Days, #30 TAB Prov:CALVIN TREVINO Jr., MD 11/02/21 Reported Medications Midodrine HCl (Midodrine HCl) 5 Mg Tablet, 5 MG PO TID, TAB 11/01/21 Citalopram Hydrobromide (Citalopram HBr) 10 Mg Tablet, 5 MG PO HS, TAB 11/01/21 Verapamil HCl (Verapamil ER) 120 Mg Tablet.er, 120 MG PO DAILY, TAB 11/01/21 Fludrocortisone Acetate (Fludrocortisone Acetate) 0.1 Mg Tablet, 0.2 MG PO BID, TAB 07/14/21 Past History Past Medical History Past Medical History: Gallstones, Other Medical History Other: FARMER, TACHYCARDIA Past Surgical History: Other Surgical History Other: CARDIAC ABLATION Social History Social History: Negative, Lives with family Female( History) LMP: Oct 23, 2025 Review of Systems Gastrointestinal/Abdominal: (+) nausea, (+) vomiting, (+) abdominal pain Review of Systems: was completed, & the rest were negative. ALLERGIES: Coded Allergies: No Known Allergies (Unverified Allergy, Unknown, 04/22/21) HOME MEDS: Active Scripts Ketorolac Tromethamine (Ketorolac Tromethamine) 10 Mg Tablet, 1 TAB PO TID for pain for 5 Days, #15 TAB 0 Refills Prov:LINDSAY LOWERY DO 05/13/25 Hydrocodone/Acetaminophen (Hydrocodon-Acetaminophen 5-325) 5 Mg-325 Mg Tablet, 1 TAB PO TIDP PRN for pain for 5 Days, #15 TAB 0 Refills Prov:LINDSAY LOWERY DO 05/13/25 Potassium Chloride (Potassium Chloride) 20 Meq Tablet.er, 20 MEQ PO DAILY for 30 Days, #30 TAB Prov:CALVIN TREVINO Jr., MD 11/02/21 Reported Medications Propranolol HCl (Propranolol HCl) 60 Mg Cap.sa.24h, 1 CAP PO DAILY for 30 Days, #30 CAP 0 Refills 11/03/25 Oxcarbazepine (Oxcarbazepine) 300 Mg Tablet, 300 MG PO BID, TAB 11/03/25 Sertraline HCl (Sertraline HCl) 100 Mg Tablet, 2 TAB PO DAILY for 30 Days, #30 TAB 0 Refills 11/03/25 Midodrine HCl (Midodrine HCl) 5 Mg Tablet, 5 MG PO TID, TAB 11/01/21 Citalopram Hydrobromide (Citalopram HBr) 10 Mg Tablet, 5 MG PO HS, TAB 11/01/21 Verapamil HCl (Verapamil ER) 120 Mg Tablet.er, 120 MG PO DAILY, TAB 11/01/21 Fludrocortisone Acetate (Fludrocortisone Acetate) 0.1 Mg Tablet, 0.2 MG PO BID, TAB 07/14/21 INPATIENT MEDS: Current Medications Medications Dose Ordered Sig/Talha Start Time Stop Time Status Last Admin Hydromorphone HCl 0.5 mg Q4H PRN 11/03/25 02:00 11/08/25 01:59 11/03/25 09:11 Ondansetron HCl 4 mg Q6H PRN 11/03/25 02:00 12/03/25 01:59 Pantoprazole Sodium 40 mg DAILY 11/03/25 09:00 12/03/25 08:59 11/03/25 09:20 Piperacillin Sod/ Tazobactam Sod 3.375 gm Q8H 11/03/25 09:30 11/05/25 09:29 11/03/25 09:20 Acetaminophen 650 mg Q6H PRN 11/03/25 08:00 12/03/25 07:59 Ketorolac Tromethamine 15 mg Q8H PRN 11/03/25 08:30 11/08/25 08:29 11/03/25 10:40 Propranolol HCl 30 mg BID 11/03/25 21:00 12/03/25 20:59 Fludrocortisone Acetate 0.1 mg BID 11/03/25 21:00 12/03/25 20:59 VITAL SIGNS Vital Signs Date Time Temp Pulse Resp B/P (MAP) Pulse Ox O2 Delivery O2 Flow Rate FiO2 11/03/25 07:43 98.2 97 18 129/80 98 Room Air 11/03/25 03:34 98.2 80 17 114/78 94 Room Air 11/03/25 02:15 94 Room Air* 0 21 11/03/25 02:01 98.6 84 17 103/55 97 Room Air* 0 11/02/25 22:46 98.8 75 18 146/94 98 Room Air 0 PHYSICAL EXAM Physical Exam Physical Exam Physical Exam Dictation GENERAL APPEARANCE NAD, activity normal for age, well developed/ well nourished, no cyanosis, pallor, or diaphoresis. EYES lids/conjunctiva normal. EARS/NOSE/THROAT Mucous membranes moist, nares normal, lips/teeth normal uvula midline without oral pharyngeal erythema, exudate or swelling TMs normal bilaterally. No lymphangitis/lymphedema. HEAD/NECK normocephalic atraumatic, no facial trauma, neck is supple. RESPIRATORY respiratory effort normal, speaks in full sentences, no tripod posit ion, no accessory muscle use. Lungs clear to auscultation without rhonchi, wheezes, rales CARDIAC Regular rate and rhythm, no edema. ABDOMINAL Soft, right upper quadrant tenderness to deep palpation. Positive Almaraz sign. MUSCLES/EXTREMITIES No abnormal range of motion, no swelling. SKIN Warm, pink and dry. No rashes, dermatoses, petechiae or lesions. NEUROLOGICAL Speech is clear and appropriate. Normal level of consciousness. Gait and coordination are normal. 5/5 strength in all extremities. PSYCH Normal mood and affect. Judgement/competence is appropriate LABORATORY RESULTS Laboratory Tests 11/02/25 23:18: White Blood Count 12.4, Red Blood Count 4.83, Hemoglobin 12.8, Hematocrit 38.5, Mean Corpuscular Volume 79.7, Mean Corpuscular Hemoglobin 26.5, Mean Corpuscular Hemoglobin Concent 33.2, Red Cell Distribution Width 13.8, Platelet Count 286, Mean Platelet Volume 11.6, Immature Granulocyte % (Auto) 0.5, Neutrophils (%) (Auto) 79.3, Lymphocytes (%) (Auto) 12.6, Monocytes (%) (Auto) 7.2, Eosinophils (%) (Auto) 0.2, Basophils (%) (Auto) 0.2, Neutrophils # (Auto) 9.9, Lymphocytes # (Auto) 1.6, Monocytes # (Auto) 0.9, Eosinophils # (Auto) 0.03, Basophils # (Auto) 0.02, Absolute Immature Granulocyte (auto 0.06, Nucleated Red Blood Cells 0.0, Urine Color LIGHT-YELLOW, Urine Appearance CLEAR, Urine pH 6.0, Urine Specific [place] 1.017, Urine Protein NEGATIVE, Urine Glucose (UA) NEGATIVE, Urine Ketones NEGATIVE, Urine Occult Blood +- (TRACE), Urine Nitrate NEGATIVE, Urine Bilirubin NEGATIVE, Urine Urobilinogen 0.2, Urine Leukocyte Esterase 75, Urine RBC 2-5, Urine WBC 2-5, Urine Squamous Epithelial Cells Moderate, Urine Bacteria Few, Urine HCG, Qualitative NEGATIVE, Sodium Level 132, Potassium Level 4.0, Chloride Level 96, Carbon Dioxide Level 27, Blood Urea Nitrogen 8, Creatinine 0.7, Glomerular Filtration Rate Calc 121, Random Glucose 118, Total Calcium 8.7, Total Bilirubin 0.4, Direct Bilirubin 0.1, Aspartate Amino Transf (AST/SGOT) 18, Alanine Aminotransferase (ALT/SGPT) 20, Alkaline Phosphatase 76, Total Protein 7.5, Albumin 3.8, Lipase 27 11/03/25 04:28: White Blood Count 9.1, Red Blood Count 4.58, Hemoglobin 11.9, Hematocrit 37.9, Mean Corpuscular Volume 82.8, Mean Corpuscular Hemoglobin 26.0, Mean Corpuscular Hemoglobin Concent 31.4, Red Cell Distribution Width 13.6, Platelet Count 217, Mean Platelet Volume 11.2, Immature Granulocyte % (Auto) 0.3, Neutrophils (%) (Auto) 74.2, Lymphocytes (%) (Auto) 15.5, Monocytes (%) (Auto) 9.6, Eosinophils (%) (Auto) 0.3, Basophils (%) (Auto) 0.1, Neutrophils # (Auto) 6.7, Lymphocytes # (Auto) 1.4, Monocytes # (Auto) 0.9, Eosinophils # (Auto) 0.03, Basophils # (Auto) 0.01, Absolute Immature Granulocyte (auto 0.03, Nucleated Red Blood Cells 0.0, Sodium Level 134, Potassium Level 3.9, Chloride Level 97, Carbon Dioxide Level 29, Blood Urea Nitrogen 8, Creatinine 0.7, Glomerular Filtration Rate Calc 121, Random Glucose 120, Total Calcium 8.5, Total Bilirubin 0.9, Aspartate Amino Transf (AST/SGOT) 275, Alanine Aminotransferase (ALT/SGPT) 167, Alkaline Phosphatase 78, Total Protein 6.8, Albumin 3.4, Magnesium Level 1.80 PROBLEM LIST: (1) Hypokalemia ICD Codes: E87.6 - Hypokalemia (2) Postural orthostatic tachycardia syndrome ICD Codes: I49.8 - Other specified cardiac arrhythmias (3) Obesity (BMI 30-39.9) ICD Codes: E66.9 - Obesity, unspecified (4) Acute cholecystitis ICD Codes: K81.0 - Acute cholecystitis PLAN npo iv abx, pain meds, consult surgery. MADISON MCCLURE MD Nov 03, 2025 14:03
--- NOTE | 2025-11-03 14:41 | CONS ---
Cardiology Consult Note Attending Blood Bank Supervisor: Dr. Parth Weeks Primary Blood Bank Supervisor: Dr. Pascual Gomes Consulting Physician: Dr. Russ Date of Service: 11/03/2025 Reason for Consult: Preoperative risk assessment HPI: This is a 30y/o female with a past medical history of POTS, nonobstructive CAD identified on CCTA done on 07/15/2021, anxiety, and depression who presents with abdominal pain of 1 day in duration. The symptoms began spontaneously, on evening, and over the ensuing timeframe were constant and progressively worsened. The pain was located in the RUQ and was described as dull in quality, 9/10 in intensity, and radiated to the epigastric region. The pain was exacerbated by PO intake and not alleviated by anything. Associated symptoms include nausea and chills. Pertinent negatives include headache, dizziness, sync ope, chest pain, chest pressure, palpitations, shortness of breath, PND, orthopnea, vomiting, weight gain, lower extremity swelling, diaphoresis, or fever. The patient's progression of symptoms prompted her to seek a higher level of care. While on the inpatient service, the patient was found to have acute calculous cholecystitis. Cardiology was consulted in order to assess the valdo ent's preoperative risk. PMH: Listed above PSH: Listed above FH: Noncontributory SH: Denies alcohol, tobacco, or illicit drug use. Allergies: Coded Allergies: No Known Allergies (Unverified Allergy, Unknown, 04/22/21) Review of systems: General: As per the HPI HEENT: Denies changes in vision, earache or sore throat Neck: Denies pain or stiffness Cardio: Denies chest pain, chest pressure, or palpitations. Pulm: Denies SOB, coughing or wheezing GI: As per the HPI MSK: Denies decreased ROM or joint pain Heme: Denies anemia, easy bruising, or bleeding. Neuro: Denies headache, dizziness, or syncope. Physical Exam: Vital Signs Date Time Temp Pulse Resp B/P (MAP) Pulse Ox O2 Delivery O2 Flow Rate FiO2 11/03/25 11:28 98.1 84 18 106/69 97 Room Air 11/03/25 02:15 0 21 General: Alert and oriented. NAD HEENT: NC/AT. Oral mucosa is moist. Neck: No masses, JVD, or carotid bruits Lungs: NRD. SCM. B/L CTA. No wheezing, rales or rhonchi. Cardio: Regular rate. Normal S1 and S2. +S4. PMI was not displaced. Abdomen: Soft. Tender to palpation. ND. Normal active bowel sounds x 4 quadrants. Extremities: Diminished throughout. No edema, clubbing, or cyanosis. Neuro: CN II-XII were grossly intact. No focal deficits. Labs: Laboratory Tests Test 11/02/25 23:18 11/03/25 04:28 Range/Units White Blood Count 12.4 H 9.1 # 4.8-10.8 K/uL Red Blood Count 4.83 4.58 4.00-5.50 MIL/uL Hemoglobin 12.8 11.9 L 12.0-16.0 g/dL Hematocrit 38.5 37.9 36-48 % Mean Corpuscular Volume 79.7 82.8 79-99 fL Mean Corpuscular Hemoglobin 26.5 L 26.0 L 27.0-33.0 pg Mean Corpuscular Hemoglobin Concent 33.2 31.4 L 32.0-36.0 g/dL Red Cell Distribution Width 13.8 13.6 11.0-15.5 % Platelet Count 286 217 130-400 K/uL Mean Platelet Volume 11.6 H 11.2 H 7.5-10.5 fL Immature Granulocyte % (Auto) 0.5 0.3 0-1 % Neutrophils (%) (Auto) 79.3 H 74.2 40.0-77.0 % Lymphocytes (%) (Auto) 12.6 L 15.5 L 21.0-51.0 % Monocytes (%) (Auto) 7.2 9.6 3.0-13.0 % Eosinophils (%) (Auto) 0.2 0.3 0.0-8.0 % Basophils (%) (Auto) 0.2 0.1 0.0-5.0 % Neutrophils # (Auto) 9.9 H 6.7 1.8-7.7 K/uL Lymphocytes # (Auto) 1.6 1.4 1.0-4.8 K/uL Monocytes # (Auto) 0.9 0.9 0.1-1.0 K/uL Eosinophils # (Auto) 0.03 0.03 0.00-0.70 K/uL Basophils # (Auto) 0.02 0.01 0.00-0.20 K/uL Absolute Immature Granulocyte (auto 0.06 0.03 0-1 K/uL Nucleated Red Blood Cells 0.0 0.0 0.0-0.19 % Urine Color LIGHT-YELLOW YELLOW Urine Appearance CLEAR CLEAR Urine pH 6.0 5.0-8.0 Urine Specific Jean 1.017 1.001-1.031 Urine Protein NEGATIVE NEGATIVE mg/dL Urine Glucose (UA) NEGATIVE NEGATIVE mg/dL Urine Ketones NEGATIVE NEGATIVE mg/dL Urine Occult Blood +- (TRACE) H NEGATIVE Urine Nitrate NEGATIVE NEGATIVE Urine Bilirubin NEGATIVE NEGATIVE mg/dL Urine Urobilinogen 0.2 0.2-1.0 mg/dL Urine Leukocyte Esterase 75 H NEGATIVE Sabino/uL Urine RBC 2-5 H 0-1 /HPF Urine WBC 2-5 H 0-1 /HPF Urine Squamous Epithelial Cells Moderate H 0-2 /HPF Urine Bacteria Few None Seen /HPF Urine HCG, Qualitative NEGATIVE NEGATIVE Sodium Level 132 L 134 L 136-145 mmol/L Potassium Level 4.0 3.9 3.5-5.1 mmol/L Chloride Level 96 L 97 L 101-111 mmol/L Carbon Dioxide Level 27 29 21-32 mmol/L Blood Urea Nitrogen 8 8 7-18 mg/dL Creatinine 0.7 0.7 0.5-1.0 mg/dL Glomerular Filtration Rate Calc 121 121 >90 mL/min Random Glucose 118 H 120 H 70-105 mg/dL Total Calcium 8.7 8.5 8.5-10.1 mg/dL Total Bilirubin 0.4 0.9 # 0.2-1.0 mg/dL Direct Bilirubin 0.1 0.0-0.3 mg/dL Aspartate Amino Transf (AST/SGOT) 18 275 H 10-37 U/L Alanine Aminotransferase (ALT/SGPT) 20 167 #H 12-78 U/L Alkaline Phosphatase 76 78 50-136 U/L Total Protein 7.5 6.8 6.0-8.3 g/dL Albumin 3.8 3.4 L 3.5-5.0 g/dL Lipase 27 16-77 U/L Magnesium Level 1.80 1.80-2.40 mg/dL Assessment: -Abdominal pain -Leukocytosis -Acute calculous cholecystitis, pending surgical intervention -Elevated LFTs -UTI -POTS -Nonobstructive CAD identified on CCTA done on 07/15/2021 -Anxiety/depression Plan: 1. Preoperative risk assessment -The patient is pending to undergo surgery to address acute calculous cholecystitis. -2D echocardiogram 11/03/2025: The cardiac chambers are normal in size. No wall motion abnormalities noted. LVEF systolic function is normal with an estimated LVEF of 60-65% with normal LV diastolic function. Trace MR. PASP is normal. No pericardial effusion. -Wilson: 0.1% -RCRI: 1 point. 1.1% -The above mentioned findings indicate that the patient is a low risk candidate for a moderate risk procedure. -No further cardiac workup is needed before surgery. -We recommend a slow anesthetic induction, minimizing large fluid shifts or blood loss, and maintaining a HR between 50-120 bpm and SBP between 90-170 mmHg during the procedure. 2. POTS -Stable -Restart fludrocortisone 0.1 mg BID and propranolol 30 mg BID (substituted for home regimen of propranolol ER 60 mg daily. Thank you for this interesting consult and allowing us to participate in the care of your patient. We will be signing off of the case, but if there are any questions or concerns, please contact us at your earliest convenience. Please have the patient follow up with Cardiology, Dr. Gomes, 2-4 weeks after discharge. This case was discussed with my Supervising Physician, Dr. Parth Weeks, and the above mentioned plan was formulated and agreed upon. -Consult Note written by Nikole Hayes, MSN, SOW [employer] BARN TECHNICIAN, JOSEFACNP-BC NIKOLE HAYES Nov 03, 2025 14:41
[2025-11-03] MEDS: FLUDROCORTISONE ACETATE 0.1 MG TABLET PO SCH (21:00)
[2025-11-03] MEDS: PROPRANOLOL HCL 10 MG TAB PO SCH (21:24)
--- NOTE | 2025-11-03 22:50 | HMCSR ---
APPROVED REPORT EXAM: Two-dimensional and M-mode echocardiogram with Doppler and color Doppler. INDICATION ICD: Pre-op Clearance 2D Dimensions RVDd 3.8 cm LVEF(%) 58.6 (>50%) LVED Vol(simp.) 70.0 mL IVSd 1.0 (0.7-1.1cm) FS(%) 30 % LVES Vol(simp.) 24.0 mL LVDd 3.0 (3.8-5.6cm) LA (2D) 2.4 (1.6-4.0cm) LVEF(%, simp.) 66 % PWd 1.0 (0.7-1.1cm) Ao Root(2D) 2.5 (2.0-3.7cm) LA ESV INDEX (BP) 16.01 mL/m2 LVDs 2.1 (2.5-4.0cm) LVOT diam 1.9 (1.8-2.4cm) IVC diam 1.5 cm Deformation Strain Apical 4 -20.6 % Apical 2 -21.7 % Apical 3 -21.1 % Global Strain -21.1 % M-Mode Dimensions EPSS 0.6 cm LA (MM) 2.3 (1.6-4.0cm) Ao Root(MM) 2.3 (2.0-3.7cm) Aortic Valve AoV Vmax 1.7 m/s Ao Peak GR 12.2 mmHg LVOT Vmax 1.4 m/s AoV VTI 0.3 m Ao Mean GR 5.5 mmHg LVOT VTI 0.24 m MARY (VMAX) 2.12 cm2 MARY (VTI) 2.2 cm2 Mitral Valve MV E Vmax 77.9 cm/s DECEL Time 146 ms MV A Vmax 65.3 cm/s P 1/2 T 67 ms E/A ratio 1.2 MVA (PHT) 3.3 cm2 TDI E/E' Medial 8.2 E/E' Lateral 5.9 Medial E' Peak V 9.54 cm/s Lateral E' Peak V 13.17 cm/s Pulmonary Valve PV Vmax 1.2 m/s PV VTI 0.24 m PV Mean GR 3.0 mmHg PV Peak GR 5.5 mmHg Tricuspid Valve RAP (EST) 8 mmHg RVSP 8.0 mmHg Left Ventricle The left ventricle is normal size. No regional wall motion abnormalities noted. There is normal left ventricular wall thickness. Left ventricular systolic function is normal, estimated LVEF is 60 to 65%. The left ventricular diastolic function is normal. Right Ventricle The right ventricle is normal size. The right ventricular systolic function is normal. Atria The left atrium size is normal. The right atrium size is normal. Aortic Valve Aortic valve is trileaflet. No aortic regurgitation is present. There is no aortic valvular stenosis. Mitral Valve The mitral valve is normal in structure. There is no mitral valve regurgitation noted. There is no mitral valve stenosis. Tricuspid Valve The tricuspid valve is normal in structure. Trace mitral regurgitation. RVSP is normal. Pulmonic Valve Pulmonic valve is not well visualized. Great Vessels The aortic root is normal in size. The IVC is normal in size and collapses >50% with inspiration. Pericardium There is no pericardial effusion. Other Information Quality : Adequate Conclusion The cardiac chambers are normal in size. There is normal left ventricular wall thickness. No regional wall motion abnormalities noted. Left ventricular systolic function is normal, estimated LVEF is 60 to 65%. The left ventricular diastolic function is normal. Trace mitral regurgitation. PASP is normal. There is no pericardial effusion.
[2025-11-04] VITALS (8 sets, daily range): BP systolic 83–104; BP diastolic 50–61; PULSE 76–99; RESP 16–19; TEMP 97.8–100.2; O2SAT 97
--- NOTE | 2025-11-04 03:56 | HP ---
ADMITTING HISTORY AND PHYSICAL CHIEF COMPLAINT: A 30-year-old female who has a history of POTS syndrome, came with right upper quadrant pain and the patient was diagnosed with cholelithiasis. HISTORY OF PRESENT ILLNESS: According to the chart, the patient has a diagnosis of cholelithiasis, but the patient is taking [place] in the past. The patient still has right upper quadrant pain radiating to the back. The patient has a history of nausea and vomiting with this and the patient has a cholecystitis, acute calculus cholecystitis. The patient is going to be hospitalized for the IV fluids, IV antibiotics, and surgical consultation. PAST MEDICAL HISTORY: Significant for POTS disease, tachycardia, and gallstones. PAST SURGICAL HISTORY: Significant for cardiac ablation. MEDICATIONS: The patient takes ketorolac, hydrocodone, potassium, midodrine, citalopram, verapamil, fludrocortisone. ALLERGIES: None. SOCIAL HISTORY: No history of smoking or alcohol. Lives with the family. LMP is 10/23. REVIEW OF SYSTEMS: HEENT: Negative. CARDIOVASCULAR: Negative. GASTROINTESTINAL: Abdominal pain, nausea, vomiting present. GENITOURINARY: Negative. MUSCULOSKELETAL: Joint pains. PHYSICAL EXAMINATION: GENERAL: The patient is awake, alert, and oriented to person, place. The patient is in mild painful distress. VITAL SIGNS: Significant for blood pressure is 130/60, pulse 60, respirations 18. HEENT: Pupils equal. Mucous membranes appear to be dry. NECK: Supple. LUNGS: The patient has decreased breath sounds. No wheezing or rhonchi. HEART: Regular rate and rhythm. ABDOMEN: Nonspecific tenderness on the right side of the abdomen. No rebound at this time. Bowel sounds present. EXTREMITIES: No edema noted. LABORATORY DATA: Significant. WBC is 12,000 and platelet count is 286. Sodium 132, potassium 4.0, creatinine 0.7, sugar is 118, bilirubin is 0.1, lipase is 27. ASSESSMENT AND PLAN: Abdominal pain, acute calculus cholecystitis. The patient is on IV fluids, n.p.o., antibiotics, surgical consultation, Protonix. The patient is already seen by the patient's primary Dr. Russ and the patient care will be transferred to Dr. Russ at this time. The patient is going to get repeat labs in the morning tomorrow. TID: [id number] RECEIPT: [id number]
--- NOTE | 2025-11-04 07:23 | PN ---
GENERAL SURGERY PROGRESS NOTE Date/Time Patient Seen: [11/04/2025] Problem List: [Acute calculous cholecystitis] Interval History: [Patient was examined at bedside this morning, accompanied by mother. No acute overnight events were reported by the nurse. Patient states her pain has decreased slightly as compared to yesterday. She is tolerating her full liquid diet and passing flatus. Of note, patient had 2 episodes of fever overnight with Tmax of 102.7. Patient was also cleared by cardiology for surgery.] Current Medications Medications (Trade) Dose Ordered Sig/Talha Route Start Time Stop Time Status Last Admin Dose Admin Fludrocortisone Acetate (Fludrocortisone Acetate) 0.1 mg BID PO 11/03/25 21:00 12/03/25 20:59 Pantoprazole Sodium (PROTonix 40MG INJ) 40 mg DAILY IVP 11/03/25 09:00 12/03/25 08:59 11/03/25 09:20 40 MG Piperacillin Sod/ Tazobactam Sod (Zosyn 3.375gm+NS 50ml) 3.375 gm Q8H IV 11/03/25 02:00 11/03/25 01:49 DC Piperacillin Sod/ Tazobactam Sod (Zosyn 3.375gm+NS 50ml) 3.375 gm Q8H IV 11/03/25 09:30 11/05/25 09:29 11/04/25 02:01 3.375 GM Propranolol HCl (Inderal) 30 mg BID PO 11/03/25 21:00 12/03/25 20:59 11/03/25 21:24 30 MG Physical Examination: Awake, alert, oriented x3 Regular rate and rhythm Unlabored breathing _Abd soft, tender to RUQ Vital Signs (last 8hr) Date Time Temp Pulse Resp B/P (MAP) Pulse Ox O2 Delivery O2 Flow Rate FiO2 11/04/25 04:00 97.9 82 16 94/50 95 Room Air 11/04/25 02:00 99.0 11/03/25 23:54 102.7 114 19 116/61 100 Room Air Laboratory: [ ] Hematology Labs: Test 11/03/25 04:28 Range/Units White Blood Count 9.1 # 4.8-10.8 K/uL Red Blood Count 4.58 4.00-5.50 MIL/uL Hemoglobin 11.9 L 12.0-16.0 g/dL Hematocrit 37.9 36-48 % Mean Corpuscular Volume 82.8 79-99 fL Mean Corpuscular Hemoglobin 26.0 L 27.0-33.0 pg Mean Corpuscular Hemoglobin Concent 31.4 L 32.0-36.0 g/dL Red Cell Distribution Width 13.6 11.0-15.5 % Platelet Count 217 130-400 K/uL Mean Platelet Volume 11.2 H 7.5-10.5 fL Immature Granulocyte % (Auto) 0.3 0-1 % Neutrophils (%) (Auto) 74.2 40.0-77.0 % Lymphocytes (%) (Auto) 15.5 L 21.0-51.0 % Monocytes (%) (Auto) 9.6 3.0-13.0 % Eosinophils (%) (Auto) 0.3 0.0-8.0 % Basophils (%) (Auto) 0.1 0.0-5.0 % Neutrophils # (Auto) 6.7 1.8-7.7 K/uL Lymphocytes # (Auto) 1.4 1.0-4.8 K/uL Monocytes # (Auto) 0.9 0.1-1.0 K/uL Eosinophils # (Auto) 0.03 0.00-0.70 K/uL Basophils # (Auto) 0.01 0.00-0.20 K/uL Absolute Immature Granulocyte (auto 0.03 0-1 K/uL Nucleated Red Blood Cells 0.0 0.0-0.19 % Chemistry Labs: Test 11/03/25 04:28 11/02/25 23:18 Range/Units Sodium Level 134 L 136-145 mmol/L Potassium Level 3.9 3.5-5.1 mmol/L Chloride Level 97 L 101-111 mmol/L Carbon Dioxide Level 29 21-32 mmol/L Blood Urea Nitrogen 8 7-18 mg/dL Creatinine 0.7 0.5-1.0 mg/dL Glomerular Filtration Rate Calc 121 >90 mL/min Random Glucose 120 H 70-105 mg/dL Total Calcium 8.5 8.5-10.1 mg/dL Magnesium Level 1.80 1.80-2.40 mg/dL Total Bilirubin 0.9 # 0.2-1.0 mg/dL Aspartate Amino Transf (AST/SGOT) 275 H 10-37 U/L Alanine Aminotransferase (ALT/SGPT) 167 #H 12-78 U/L Alkaline Phosphatase 78 50-136 U/L Total Protein 6.8 6.0-8.3 g/dL Albumin 3.4 L 3.5-5.0 g/dL Direct Bilirubin 0.1 0.0-0.3 mg/dL Lipase 27 16-77 U/L Diagnostics / Radiology: [Copy/Paste Echos/Imaging Report here] Impression and Plan: [Patient with acute calculous cholecystitis. Plan for laparoscopic cholecystectomy with IOC in the OR tomorrow. Risks associated with the procedure including but not limited to infection, bleeding, and injury to surrounding structures have been discussed with the patient and mother. Both verbalized understanding and agrees with the plan.] Above patient's assessment and plan has been discussed with my attending physician, Dr. Olvera. Patient is still experiencing pain. Pain is localized in right upper quadrant. Patient did have subjective fevers. Plan on laparoscopic cholecystectomy with intraoperative cholangiogram for tomorrow. Risks associated with the procedure not limited to infection, bleeding, injury to surrounding structures has been discussed with the patient and she indicates she understands. I personally discussed the case with my PA and agree with my PA note above. JENNIFER REHMAN Nov 04, 2025 07:23 PEDRO OLVERA MD Nov 05, 2025 14:27
--- NOTE | 2025-11-04 10:21 | PN ---
PROGRESS NOTE PROGRESS NOTE DATE OF PROGRESS NOTE: 11/04/25 SUBJECTIVE: Patient with features of cholecystitis on antibiotics NPO pending surgery VITAL SIGNS Vital Signs Date Time Temp Pulse Resp B/P (MAP) Pulse Ox O2 Delivery O2 Flow Rate FiO2 11/04/25 04:00 97.9 82 16 94/50 95 Room Air 11/03/25 20:00 0 21 PHYSICAL EXAM: Physical Exam Physical Exam Physical Exam Dictation GENERAL APPEARANCE NAD, activity normal for age, well developed/ well nourished, no cyanosis, pallor, or diaphoresis. EYES lids/conjunctiva normal. EARS/NOSE/THROAT Mucous membranes moist, nares normal, lips/teeth normal uvula midline without oral pharyngeal erythema, exudate or swelling TMs normal bilaterally. No lymphangitis/lymphedema. HEAD/NECK normocephalic atraumatic, no facial trauma, neck is supple. RESPIRATORY respiratory effort normal, speaks in full sentences, no tripod position, no accessory muscle use. Lungs clear to auscultation without rhonchi, wheezes, rales CARDIAC Regular rate and rhythm, no edema. ABDOMINAL Soft, right upper quadrant tenderness to deep palpation. Positive Almaraz sign. MUSCLES/EXTREMITIES No abnormal range of motion, no swelling. SKIN Warm, pink and dry. No rashes, dermatoses, petechiae or lesions. NEUROLOGICAL Speech is clear and appropriate. Normal level of consciousness. Gait and coordination are normal. 5/5 strength in all extremities. PSYCH Normal mood and affect. Judgement/competence is appropriate INPATIENT MEDS: Current Medications Medications Dose Ordered Sig/Talha Start Time Stop Time Status Last Admin Hydromorphone HCl 0.5 mg Q4H PRN 11/03/25 02:00 11/08/25 01:59 11/04/25 00:12 Ondansetron HCl 4 mg Q6H PRN 11/03/25 02:00 12/03/25 01:59 Pantoprazole Sodium 40 mg DAILY 11/03/25 09:00 12/03/25 08:59 11/03/25 09:20 Piperacillin Sod/ Tazobactam Sod 3.375 gm Q8H 11/03/25 09:30 11/05/25 09:29 11/04/25 02:01 Acetaminophen 650 mg Q6H PRN 11/03/25 08:00 12/03/25 07:59 11/03/25 23:02 Ketorolac Tromethamine 15 mg Q8H PRN 11/03/25 08:30 11/08/25 08:29 11/04/25 02:07 Propranolol HCl 30 mg BID 11/03/25 21:00 12/03/25 20:59 11/03/25 21:24 Fludrocortisone Acetate 0.1 mg BID 11/03/25 21:00 12/03/25 20:59 PROBLEM LIST: (1) Hypokalemia ICD Code: E87.6 - Hypokalemia (2) Postural orthostatic tachycardia syndrome ICD Code: I49.8 - Other specified cardiac arrhythmias (3) Obesity (BMI 30-39.9) ICD Code: E66.9 - Obesity, unspecified (4) Acute cholecystitis ICD Code: K81.0 - Acute cholecystitis PLAN: npo iv abx, pain meds, consult surgery. Pending cardiac clearance MADISON MCCLURE MD Nov 04, 2025 10:21
--- NOTE | 2025-11-04 12:18 | HMCIMG ---
EXAM: US Abdomen, Right Upper Quadrant CLINICAL HISTORY: History of gallstones; rule out cholecystitis TECHNIQUE: Right upper quadrant sonography performed with grayscale and Doppler imaging. COMPARISON: Prior ultrasound 05/13/25 (details not provided). FINDINGS LIVER: Liver size: 16 cm Echogenicity: Increased echogenicity (suggestive of hepatic steatosis) No focal liver mass identified. GALLBLADDER: Gallbladder wall thickness: 2 mm (normal) Gallbladder distended to: 11.1 cm Nonmobile gallstone at the gallbladder neck measuring 17 mm No pericholecystic fluid noted. COMMON BILE DUCT: CBD diameter: 4 mm (normal) MAIN PORTAL VEIN: Flow: Hepatopetal Velocity: 24.3 cm/s PANCREAS: Within normal limits, where visualized. RIGHT KIDNEY: Size: 9.5 4.6 4.0 cm No hydronephrosis. No renal stones or mass. IMPRESSION Acute calculous cholecystitis. Mild fatty liver. /Bjorn
[2025-11-05] VITALS (24 sets, daily range): BP systolic 97–126; BP diastolic 42–78; PULSE 62–106; RESP 13–18; TEMP 97.5–99.5; O2SAT 97
[2025-11-05 07:15] LABS: NUCLEATED RED BLOOD CELLS 0.0 % (0.0-0.19); PLATELET COUNT (AUTO) 188 K/uL (130-400); RED BLOOD CELL COUNT(AUTO) 4.59 MIL/uL (4.00-5.50); RED CELL DISTRIBUTION WIDTH 13.9 % (11.0-15.5); WHITE BLOOD COUNT (AUTO) 10.3 K/uL (4.8-10.8)
[2025-11-05 07:26] LABS: IMMATURE GRANULOCYTE ABSOLUTE 0.05 K/uL (0-1)
[2025-11-05 07:29] LABS: ASPARTATE AMINOTRANSFERASE 21.0 U/L (10-37); CREATININE 0.7 mg/dL (0.5-1.0); GLOMERULAR FILTR. RATE CALC 121.0 mL/min (>90); GLUCOSE,RANDOM 105.0 mg/dL (70-105); SODIUM SERUM 138.0 mmol/L (136-145); TOTAL PROTEIN, SERUM 7.2 g/dL (6.0-8.3); UREA NITROGEN, BLOOD 8.0 mg/dL (7-18)
[2025-11-05] MEDS ORDERED: IOHEXOL-350 50ML VIAL IV ONE (11:38)
[2025-11-05] MEDS ORDERED: LIDOCAINE PF 100MG/5ML (2%) SYRINGE 5ML ONE (12:50)
[2025-11-05] MEDS ORDERED: MIDAZOLAM HCL 1 MG/ML 2ML VIAL ONE (12:51)
[2025-11-05] MEDS ORDERED: FAMOTIDINE 20MG VIAL IV ONE (12:58)
[2025-11-05] MEDS ORDERED: GLYCOPYRROLATE 0.2 MG/ML 5 ML VIAL ONE (13:43)
[2025-11-05] MEDS: ISOVUE-370 50ML VIAL IV ONE (13:55)
[2025-11-05] MEDS ORDERED: NEOSTIGMINE METHYLSULFATE 1MG/ML IV ONE (14:12)
--- NOTE | 2025-11-05 14:23 | OP ---
Operative Note: DATE OF PROCEDURE: 11/05/25 SURGEON: PEDRO BEST MD CUT OFF SAW OPERATOR: [Devika Peraza CFA] ANESTHESIA: [General endotracheal anesthesia] ANESTHESIOLOGIST/MOLDING PROCESS TECHNICIAN: [[facility] anesthesia team] PREOPERATIVE DIAGNOSIS: [Cholecystitis] POSTOPERATIVE DIAGNOSIS: [Cholecystitis] SYNOPSIS: [Cholecystitis Laparoscopic cholecystectomy with intraoperative cholangiogram #1 critical view obtained, #2 intraoperative cholangiogram with good flow of contrast from cystic duct into common bile duct, right and left hepatic duct, and duodenum noted All sponges and instruments accounted for at the end the case Patient tolerated the procedure well, there no complications] PROCEDURE: [Laparoscopic cholecystectomy with intraoperative cholangiogram] ESTIMATED BLOOD LOSS: [Less than 10 cc] INDICATIONS: [Cholecystitis] DESCRIPTION OF PROCEDURE: [On day of surgery patient was brought to the operating room. Positioned in the supine position. Preoperative antibiotics w ere given. Bilateral SCDs were placed. The patient was intubated. Patient then was prepped and draped in the usual fashion. Then a skin incision was made in the right upper quadrant. 5 mm trochars inserted under direct vision. Abdomen was insufflated to 15 mmHg. No injury to omentum or bowel is noted. A 5 mm port was placed in the umbilicus. A 12 mm port was placed in the subxiphoid position. A 5 mm port was placed in the right lateral abdomen. The gallbladder was grasped, elevated, the cystic duct and cystic artery was sequentially dissected. Critical view was obtained. An intraoperative cholangiogram was conducted by placing a clip at the distal end of the cystic duct. Ductotomy was made. A cholangiocatheter was introduced. Good flow of co ntrast from the cystic duct into common bile duct, right and left hepatic duct, and duodenum was noted. The Cholangiocath was removed. The cystic duct was sequentially clipped and transected. The cystic artery was then sequentially clipped and transected. The gallbladder then was dissected off the gallbladder fossa and removed an Endo Catch bag. Abdomen was irrigated. Appropriate hemostasis was noted. Then all insufflation gas was removed. Ports were removed. Local anesthetic was instilled into the incisions, and the incisions were closed with a subcuticular fashion. All sponges and instruments were accounted for at the end of the case. Patient tolerated the procedure well, there were no complications.] PEDRO BEST MD Nov 05, 2025 14:23
--- NOTE | 2025-11-05 20:37 | PN ---
PROGRESS NOTE PROGRESS NOTE DATE OF PROGRESS NOTE: 11/05/25 SUBJECTIVE: Pending cholecystectomy VITAL SIGNS Vital Signs Date Time Temp Pulse Resp B/P (MAP) Pulse Ox O2 Delivery O2 Flow Rate FiO2 11/05/25 19:20 97.9 77 18 111/78 96 Room Air 21 11/05/25 15:15 2.0 PHYSICAL EXAM: Physical Exam Physical Exam Physical Exam Dictation GENERAL APPEARANCE NAD, activity normal for age, well developed/ well nourished, no cyanosis, pallor, or diaphoresis. EYES lids/conjunctiva normal. EARS/NOSE/THROAT Mucous membranes moist, nares normal, lips/teeth normal uvula midline without oral pharyngeal erythema, exudate or swelling TMs normal bilaterally. No lymphangitis/lymphedema. HEAD/NECK normocephalic atraumatic, no facial trauma, neck is supple. RESPIRATORY respiratory effort normal, speaks in full sentences, no tripod position, no accessory muscle use. Lungs clear to auscultation without rhonchi, wheezes, rales CARDIAC Regular rate and rhythm, no edema. ABDOMINAL Soft, right upper quadrant tenderness to deep palpation. Positive Almaraz sign. MUSCLES/EXTREMITIES No abnormal range of motion, no swelling. SKIN Warm, pink and dry. No rashes, dermatoses, petechiae or lesions. NEUROLOGICAL Speech is clear and appropriate. Normal level of consciousness. Gait and coordination are normal. 5/5 strength in all extremities. PSYCH Normal mood and affect. Judgement/competence is appropriate LABORATORY: Laboratory Result(s) Test 11/05/25 07:04 White Blood Count 10.3 K/uL (4.8-10.8) Red Blood Count 4.59 MIL/uL (4.00-5.50) Hemoglobin 11.9 g/dL (12.0-16.0) Hematocrit 37.9 % (36-48) Mean Corpuscular Volume 82.6 fL (79-99) Mean Corpuscular Hemoglobin 25.9 pg (27.0-33.0) Mean Corpuscular Hemoglobin Concent 31.4 g/dL (32.0-36.0) Red Cell Distribution Width 13.9 % (11.0-15.5) Platelet Count 188 K/uL (130-400) Mean Platelet Volume 11.4 fL (7.5-10.5) Immature Granulocyte % (Auto) 0.5 % (0-1) Neutrophils (%) (Auto) 83.1 % (40.0-77.0) Lymphocytes (%) (Auto) 7.3 % (21.0-51.0) Monocytes (%) (Auto) 8.8 % (3.0-13.0) Eosinophils (%) (Auto) 0.2 % (0.0-8.0) Basophils (%) (Auto) 0.1 % (0.0-5.0) Neutrophils # (Auto) 8.5 K/uL (1.8-7.7) Lymphocytes # (Auto) 0.8 K/uL (1.0-4.8) Monocytes # (Auto) 0.9 K/uL (0.1-1.0) Eosinophils # (Auto) 0.02 K/uL (0.00-0.70) Basophils # (Auto) 0.01 K/uL (0.00-0.20) Absolute Immature Granulocyte (auto 0.05 K/uL (0-1) Nucleated Red Blood Cells 0.0 % (0.0-0.19) White Cell Morphology Comment See comments Sodium Level 138 mmol/L (136-145) Potassium Level 3.3 mmol/L (3.5-5.1) Chloride Level 100 mmol/L (101-111) Carbon Dioxide Level 28 mmol/L (21-32) Blood Urea Nitrogen 8 mg/dL (7-18) Creatinine 0.7 mg/dL (0.5-1.0) Glomerular Filtration Rate Calc 121 mL/min (>90) Random Glucose 105 mg/dL (70-105) Total Calcium 8.9 mg/dL (8.5-10.1) Total Bilirubin 0.9 mg/dL (0.2-1.0) Aspartate Amino Transf (AST/SGOT) 21 U/L (10-37) Alanine Aminotransferase (ALT/SGPT) 72 U/L (12-78) Alkaline Phosphatase 90 U/L (50-136) Total Protein 7.2 g/dL (6.0-8.3) Albumin 3.1 g/dL (3.5-5.0) Lipase 25 U/L (16-77) INPATIENT MEDS: Current Medications Medications Dose Ordered Sig/Talha Start Time Stop Time Status Last Admin Ondansetron HCl 4 mg Q6H PRN 11/03/25 02:00 12/03/25 01:59 Pantoprazole Sodium 40 mg DAILY 11/03/25 09:00 12/03/25 08:59 11/05/25 09:14 Acetaminophen 650 mg Q6H PRN 11/03/25 08:00 12/03/25 07:59 11/04/25 20:18 Propranolol HCl 30 mg BID 11/03/25 21:00 12/03/25 20:59 11/05/25 09:16 Fludrocortisone Acetate 0.1 mg BID 11/03/25 21:00 12/03/25 20:59 11/05/25 09:15 Tramadol HCl 50 mg Q6H PRN 11/05/25 17:30 11/10/25 17:29 Gabapentin 100 mg TID 11/05/25 21:00 12/05/25 20:59 Docusate Sodium 100 mg BID 11/05/25 21:00 12/05/25 20:59 Morphine Sulfate 1 mg Q3H3 PRN 11/05/25 17:30 11/12/25 17:29 Methocarbamol 500 mg TID 11/05/25 21:00 12/05/25 20:59 PROBLEM LIST: (1) Hypokalemia ICD Code: E87.6 - Hypokalemia (2) Postural orthostatic tachycardia syndrome ICD Code: I49.8 - Other specified cardiac arrhythmias (3) Obesity (BMI 30-39.9) ICD Code: E66.9 - Obesity, unspecified (4) Acute cholecystitis ICD Code: K81.0 - Acute cholecystitis PLAN: npo iv abx, pain meds, Pending cholecystectomy continue IV antibiotics MADISON MCCLURE MD Nov 05, 2025 20:37
[2025-11-06 04:24] VITALS: BP 105/67; PULSE 61; RESP 19; TEMP 97.4
[2025-11-06 08:00] VITALS: BP 110/87; PULSE 65; RESP 16; TEMP 98.1
[2025-11-06 08:02] VITALS: O2SAT 96
--- NOTE | 2025-11-06 11:30 | NUR ---
CM NOTE: POC CM REACHED OUT TO DR MCCLURE RE: DC ORDER, PT STABLE TO DC, DIET ADV, CONSULTINGS CLEARED. PENDING MD RESPONSE.
[2025-11-06 12:00] VITALS: BP 94/48; PULSE 65; RESP 16; TEMP 98.3
[2025-11-06 14:00] VITALS: BP 91/67; PULSE 70; RESP 16; TEMP 98
--- NOTE | 2025-11-06 14:30 | NUR ---
CM NOTE: POC CM REACHED OUT TO DR MCCLURE VIA SECURE TEXT REGARDING DC ORDER, PENDING MD RESPONSE. PRIMARY NURSE RC [facility] AND CHARGE NURSE KITTY WEST AWARE.
[2025-11-06 16:00] VITALS: BP 91/67; PULSE 70; RESP 16; TEMP 98
--- NOTE | 2025-11-06 17:35 | NUR ---
CM NOTE: DR MCCLURE RESPONDED PER CHARGE NURSE KITTY MCCLURE GAVE VERBAL ORDER TO NIGHT NURSE FOR DC. WILL ENTER DC ORDER CM RECEIVED RESPONSE FROM DR MCCLURE AT THIS TIME, OKAY TO DC PER MD.
--- NOTE | 2025-11-06 18:53 | NUR ---
PT sitting in bed w/ eyes open A&Ox4 ablew to make needs known. Discharge instructionsd given to PT and family in [place] language. PT and family member verbally acknowledged understanding. I.V. removed intact w/o complications. PT escorted to POV via WC by INTERNAL MEDICINE SPECIALIST w/o complications.
--- NOTE | 2025-11-06 22:50 | DS ---
Discharge Summary DIAGNOSE(S): [Acute cholecystitis] HOSPITAL COURSE SUMMARY: [Patient with bipolar disorder presented with acute biliary colic clinical diagnosis was cholecystitis underwent cholecystectomy and is discharged on continued antibiotics and resuming home medications] GASTROENTEROLOGY PHYSICIAN(S): [] PROCEDURE(S)/TREATMENT(S): [] PROBLEM(S): [] FOLLOW-UP TEST(S): [] DISCHARGE INSTRUCTIONS: [Follow up with PCP in 1-2 days] Home Meds Reported Medications Propranolol HCl (Propranolol HCl) 60 Mg Cap.sa.24h, 1 CAP PO DAILY for 30 Days, #30 CAP 0 Refills 11/03/25 Oxcarbazepine (Oxcarbazepine) 300 Mg Tablet, 300 MG PO BID, TAB 11/03/25 Sertraline HCl (Sertraline HCl) 100 Mg Tablet, 2 TAB PO DAILY for 30 Days, #30 TAB 0 Refills 11/03/25 Midodrine HCl (Midodrine HCl) 5 Mg Tablet, 5 MG PO TID, TAB 11/01/21 Citalopram Hydrobromide (Citalopram HBr) 10 Mg Tablet, 5 MG PO HS, TAB 11/01/21 Verapamil HCl (Verapamil ER) 120 Mg Tablet.er, 120 MG PO DAILY, TAB 11/01/21 Fludrocortisone Acetate (Fludrocortisone Acetate) 0.1 Mg Tablet, 0.2 MG PO BID, TAB 07/14/21 Discontinued Scripts Ketorolac Tromethamine (Ketorolac Tromethamine) 10 Mg Tablet, 1 TAB PO TID for pain for 5 Days, #15 TAB 0 Refills Prov:LINDSAY LOWERY DO 05/13/25 Hydrocodone/Acetaminophen (Hydrocodon-Acetaminophen 5-325) 5 Mg-325 Mg Tablet, 1 TAB PO TIDP PRN for pain for 5 Days, #15 TAB 0 Refills Prov:LINDSAY LOWERY DO 05/13/25 Potassium Chloride (Potassium Chloride) 20 Meq Tablet.er, 20 MEQ PO DAILY for 30 Days, #30 TAB Prov:CALVIN TREVINO Jr., MD 11/02/21 MADISON MCCLURE MD Nov 06, 2025 22:50
== END 2025-11-06 18:50 | disposition home or self-care (01) | DRG 418 ==
LOC: EDH 22:45 → EDHIP 22:46 → 4BH 11-03 02:21
PROVIDERS: ADMIT Internal Medicine; ATTEND Internal Medicine
PROC: BF121ZZ Fluoroscopy of Gallbladder using Low Osmolar Contrast (ICD-10-PCS; 2025-11-05)
PROC: 3E0T3BZ Introduction of Anesthetic Agent into Peripheral Nerves and Plexi, Percutaneous Approach (ICD-10-PCS; 2025-11-05)
PROC: 0FT44ZZ Resection of Gallbladder, Percutaneous Endoscopic Approach (ICD-10-PCS; principal; 2025-11-05 13:00)
DX: K80.62 Calculus of gallbladder and bile duct with acute cholecystitis without obstruction (principal); N39.0 Urinary tract infection, site not specified; G90.A Postural orthostatic tachycardia syndrome [POTS]; E66.9 Obesity, unspecified; F31.9 Bipolar disorder, unspecified; E87.6 Hypokalemia; F41.9 Anxiety disorder, unspecified; I25.10 Atherosclerotic heart disease of native coronary artery without angina pectoris; Z68.36 Body mass index [BMI] 36.0-36.9, adult
CPT/HCPCS: 36415; 74300; 76705; 80048; 80053; 80076; 81001; 81025; 83690; 83735; 85025; 87086; 93306; 93356; 96374; 96375; 99285; C1758; G0378; J0690; J1100; J1171; J1885; J2003; J2250; J2270; J2405; J2470; J2543; J2704; J2710; J2795; J3010; J3490; J7030; Q9967; A4216; A4222; A4223; A4600; A4649; A4930; J1308